=== PATIENT | male | born 1965 | race Caucasian/White ===

== ENCOUNTER 2017-07-06 19:07 | Emergency (ER) | payer OTHER ==
[~2017-07-06] VITALS: Ht 182.9 cm; Wt 99.8 kg
[~2017-07-06 19:07] MED LIST: ASPIR 8181 M1 PO; Ascorbic Acid,Ester- PO; FLEXERIL5 MG PO; Fioricet,Esgic,Repan PO; Fish Oil PO; L-LYSINE1000 M1 PO; METOPROLOL SUCC25 MG PO; OMEGA RED PO; PRILOSEC OTC20 MG PO; TAMIFLU75 MG; TAMIFLU75 MG PO; Toprol XL PO; VITAMIN C1000 MG PO; VITAMIN D2000 INTUN PO; Vitamin D PO
[2017-07-06 19:36] VITALS: BP 146/84
== END 2017-07-06 20:17 | disposition home or self-care (01) ==
LOC: EME 19:07
DX: S63.92XA Sprain of unspecified part of left wrist and hand, initial encounter (principal); W23.1XXA Caught, crushed, jammed, or pinched between stationary objects, initial encounter; Y93.89 Activity, other specified; Y92.810 Car as the place of occurrence of the external cause
CPT/HCPCS: 73110; 73130; 99281; 99283

== ENCOUNTER 2018-01-04 08:26 | Emergency (ER) | payer OTHER ==
[~2018-01-04] VITALS: Ht 182.9 cm; Wt 93.1 kg
[2018-01-04 09:23] LABS: APPEARANCE CLEAR ((CLEAR)); BILIRUBIN NEGATIVE; BLOOD NEGATIVE; COLOR YELLOW ((YELLOW)); GLUCOSE (STRIP) NEGATIVE; KETONES NEGATIVE; LEUKOCYTES NEGATIVE; NITRITE NEGATIVE; PROTEIN (STRIP) NEGATIVE; SPECIFIC GRAVITY 1.025 (1.000-1.030); UROBILINOGEN 0.2 MG/DL (0.2-1.0)
[2018-01-04 09:34] LABS: HEMATOCRIT 43.1 % (38.0-50.0); HEMOGLOBIN 14.7 G/DL (12.5-16.6); MCH 30.9 PG (29.0-34.0); MCHC 34.1 G/DL (30.0-36.0); MCV 90.7 FL (86-99); PLATELET COUNT 171 K/uL (156-360); RBC DIS.WIDTH-CV 11.9 % (11.8-14.6); RBC DIS.WIDTH-SD 39.7 % (39-53); RED BLOOD COUNT 4.75 M/uL (4.00-5.50)
[2018-01-04 09:44] LABS: CHLORIDE 106 mEq/L (99-109); POTASSIUM 4.2 mEq/L (3.7-5.4); SODIUM 139 mEq/L (136-147)
[2018-01-04 09:46] LABS: GLUCOSE 108 mg/dL (70-99)
[2018-01-04 09:50] LABS: CREATININE 0.9 mg/dL (0.6-1.3); GFR ESTIMATE (CALCULATED) > 59 mL/min/ (58.99-99999)
[2018-01-04 09:51] LABS: UREA NITROGEN (BUN) 16 mg/dL (9-23)
[2018-01-04] MEDS ORDERED: LIDODERM 5% P1 PATCH TD (10:00)
[2018-01-04] MEDS ORDERED: MOBIC7.5 MG PO (10:00)
[2018-01-04] MEDS ORDERED: VALIUM5 MG PO (10:00)
[2018-01-04 11:22] VITALS: BP 128/88
== END 2018-01-04 11:38 | disposition home or self-care (01) ==
LOC: EME 08:26
PROVIDERS: Nurse Practitioner Family
DX: M54.41 Lumbago with sciatica, right side (principal); M54.16 Radiculopathy, lumbar region; Z95.2 Presence of prosthetic heart valve; Z79.82 Long term (current) use of aspirin
CPT/HCPCS: 80048; 81003; 85027; 99281; 99284